=== PATIENT | female | born 1990 | race Caucasian/White ===

== ENCOUNTER → 2017-07-08 | Outpatient (CLI) | payer SELFPAY ==
[2017-07-08 12:38] LABS: PROGESTERONE 3.7 NG/ML
[2017-07-08 12:47] LABS: HCG, SERUM QUANTITATIVE 18 MIU/ML
== END ==
LOC: M LRY 09:18
DX: N96 Recurrent pregnancy loss (principal)
CPT/HCPCS: 84702